=== PATIENT | female | born 1950 ===

== ENCOUNTER 2024-12-19 08:30 | Day surgery (SDC) | payer OTHER ==
[2024-12-19] MEDS ORDERED: NALOXONE HCL 0.4 MG/ML AMPUL IV STA (11:21)
[2024-12-19] MEDS ORDERED: FLUMAZENIL 0.5 MG/5 ML ML IV STA (11:21)
[2024-12-19] MEDS ORDERED: DIPHENHYDRAMINE HCL 50 MG/ML VIAL 1ML IV ONE (11:30)
[2024-12-19] MEDS ORDERED: fentaNYL CITRATE 50 MCG/ML AMPUL IV PUSH ONE (11:30)
[2024-12-19] MEDS ORDERED: MIDAZOLAM HCL 2 MG/2 ML VIAL IV ONE (11:30)
== END 2024-12-19 13:00 | disposition home or self-care (01) ==
LOC: AMB-ENDOS 08:30
PROVIDERS: ATTEND Surgery
DX: C18.7 Malignant neoplasm of sigmoid colon (principal); R59.1 Generalized enlarged lymph nodes; Z93.3 Colostomy status